=== PATIENT | female | born 1980 | race Caucasian/White ===

== ENCOUNTER 2021-02-25 13:13 | Emergency (ER) | payer OTHER ==
[~2021-02-25] VITALS: Ht 172.7 cm; Wt 78.0 kg
[2021-02-25] MEDS ORDERED: METOPROL TAR25 MG PO (14:42)
[2021-02-25] MEDS ORDERED: AMOXICILLIN500 MG PO (15:24)
[2021-02-25] MEDS ORDERED: CLARITIN10 M2 PO (15:24)
[2021-02-25 15:40] VITALS: BP 158/73
== END 2021-02-25 15:45 | disposition home or self-care (01) ==
LOC: ED 13:13
DX: J02.9 Acute pharyngitis, unspecified (principal); Z20.822 Contact with and (suspected) exposure to COVID-19

== ENCOUNTER → 2021-04-28 | Outpatient (REF) ==
[~2021-04-28] MED LIST: AMOXICILLIN500 MG PO; CLARITIN10 M2 PO; METOPROL TAR25 MG PO
== END | disposition home or self-care (01) | DRG 951 ==
LOC: LAB 08:52
DX: Z02.1 Encounter for pre-employment examination (principal)

== ENCOUNTER 2022-05-10 08:26 | Emergency (ER) | payer OTHER ==
[~2022-05-10] VITALS: Ht 172.7 cm; Wt 56.2 kg
[~2022-05-10 08:26] MED LIST changes: +ALBENZA200 MG PO; +ATORVASTATIN CA20 MG PO; +BACLOFEN10 MG PO; +CARVEDILOL6.25 MG PO; +CORTISPORIN OTI10 ML AD; +KEFLEX500 M1 PO; +LISINOPRIL20 M1 PO; +MEDDOSEPAK PO; +PANTOPRAZOLE SO40 M1 PO; +PENICILLN VK500 MG PO; +VOLTAREN - GENE75 MG PO
[2022-05-10] MEDS ORDERED: CEPHALEXIN500 MG PO ×2 (09:16→09:23)
[2022-05-10 09:26] VITALS: BP 150/76
== END 2022-05-10 09:36 | disposition home or self-care (01) | DRG 605 ==
LOC: ED 08:26
PROC: 0HQBXZZ Repair Right Upper Arm Skin, External Approach (ICD-10-PCS; principal; 2022-05-10)
DX: S41.111A Laceration without foreign body of right upper arm, initial encounter (principal); F17.200 Nicotine dependence, unspecified, uncomplicated; W22.09XA Striking against other stationary object, initial encounter; Y93.89 Activity, other specified; Y92.89 Other specified places as the place of occurrence of the external cause; Y99.0 Civilian activity done for income or pay

== ENCOUNTER 2022-05-25 10:40 | Emergency (ER) | payer OTHER ==
[~2022-05-25] VITALS: Ht 172.7 cm; Wt 68.0 kg
[~2022-05-25 10:40] MED LIST changes: +CEPHALEXIN500 MG PO
[2022-05-25] MEDS ORDERED: AMOX/K CLAV875 M1 PO (11:02)
[2022-05-25 11:26] VITALS: BP 125/77
== END 2022-05-25 12:05 | disposition home or self-care (01) | DRG 605 ==
LOC: ED 10:40
DX: S61.451A Open bite of right hand, initial encounter (principal); W55.01XA Bitten by cat, initial encounter; Y92.29 Other specified public building as the place of occurrence of the external cause; Y99.2 Volunteer activity

== ENCOUNTER 2022-07-13 08:49 | Emergency (ER) | payer OTHER ==
[~2022-07-13] VITALS: Ht 167.6 cm; Wt 58.6 kg
[~2022-07-13 08:49] MED LIST changes: +AMOX/K CLAV875 M1 PO
[2022-07-13 09:11] VITALS: BP 135/87
[2022-07-13] MEDS ORDERED: AMOX/K CLAV875 M1 PO (09:32)
[2022-07-13] MEDS ORDERED: MUPIROCIN21 TOP (09:32)
[2022-07-13 09:57] VITALS: BP 135/87
== END 2022-07-13 10:17 | disposition home or self-care (01) | DRG 605 ==
LOC: ED 08:49
DX: S61.353A Open bite of left middle finger with damage to nail, initial encounter (principal); W54.0XXA Bitten by dog, initial encounter

== ENCOUNTER 2022-08-10 13:40 | Emergency (ER) | payer OTHER ==
[~2022-08-10] VITALS: Ht 167.6 cm; Wt 58.5 kg
[~2022-08-10 13:40] MED LIST changes: +MUPIROCIN21 TOP
[2022-08-10 15:48] VITALS: BP 139/82
[2022-08-10 16:00] VITALS: BP 133/77
[2022-08-10 16:15] VITALS: BP 135/79
[2022-08-10 16:31] VITALS: BP 104/82
[2022-08-10] MEDS ORDERED: AMOX/K CLAV875 M1 PO ×2 (16:58→18:20)
[2022-08-10] MEDS ORDERED: TRAMADOL HYDROC50 M1 PO (18:03)
[2022-08-10] MEDS ORDERED: MUPIROCIN21 TOP (18:20)
[2022-08-10 18:21] VITALS: BP 104/82
== END 2022-08-10 18:21 | disposition home or self-care (01) | DRG 605 ==
LOC: ED 13:40
PROC: 0HQGXZZ Repair Left Hand Skin, External Approach (ICD-10-PCS; principal; 2022-08-10)
DX: S61.257A Open bite of left little finger without damage to nail, initial encounter (principal); W54.0XXA Bitten by dog, initial encounter; I10 Essential (primary) hypertension; F17.210 Nicotine dependence, cigarettes, uncomplicated

== ENCOUNTER 2024-08-12 14:42 | Emergency (ER) | payer SELFPAY ==
[~2024-08-12] VITALS: Ht 167.6 cm; Wt 60.4 kg
[~2024-08-12 14:42] MED LIST changes: +TRAMADOL HYDROC50 M1 PO
[2024-08-12] MEDS ORDERED: LIDOcaine HCl 1% (Local Anesth.) 20 ML VIAL STI STA (15:23)
[2024-08-12] MEDS ORDERED: POVIDONE IODINE 0.5 OZ/BTL TOP ONE (15:25)
[2024-08-12] MEDS ORDERED: NEOMYCIN-BACITRACIN-POLYMYXIN 0.5 GM/PAK PAK TOP ONE (15:25)
[2024-08-12] MEDS ORDERED: SODIUM CHLORIDE 500 ML BTL IR ONE (15:25)
[2024-08-12 15:46] VITALS: BP 157/78
[2024-08-12] MEDS ORDERED: KEFLEX500 MG PO (15:52)
== END 2024-08-12 16:03 | disposition home or self-care (01) | DRG 605 ==
LOC: ED 14:42
PROC: 0HQGXZZ Repair Left Hand Skin, External Approach (ICD-10-PCS; principal; 2024-08-12)
DX: S61.217A Laceration without foreign body of left little finger without damage to nail, initial encounter (principal); I10 Essential (primary) hypertension; W26.8XXA Contact with other sharp object(s), not elsewhere classified, initial encounter; Z72.0 Tobacco use